=== PATIENT | female | born 1945 | race Caucasian/White ===

== ENCOUNTER 2016-07-23 01:55 | Emergency (ER) | payer MEDICARE ==
[2016-07-23 02:43] LABS: BASO % 0.3 % (0.1-1.2); EOS # 0.5 10_X3_uL (0.0-0.4); GRAN # 3.5 10_X3_uL (1.6-6.1); GRAN % 39.1 % (34.0-71.1); HEMATOCRIT 33.2 % (34-45); HEMOGLOBIN 11.2 g/dL (11.2-15.7); LYMPH % 44.9 % (19.3-51.7); MEAN CORPUSCULAR HEMOGLOBIN 32.8 pg (27.0-33.0); MEAN CORPUSCULAR HGB CONC 33.7 g/dL (32.0-36.0); MEAN CORPUSCULAR VOLUME 97.4 fL (79-95); MEAN PLATELET VOLUME 9.7 fl (7.5-11.5); MONO # 0.9 10_X3_uL (0.2-0.9); MONO % 9.7 % (4.7-12.5); PLATELET COUNT 240 x10_3/uL (182-369); RED BLOOD COUNT 3.41 x10_6/uL (3.9-5.2); RED CELL DISTRIBUTION WIDTH 11.9 % (11.7-14.4)
[2016-07-23 02:57] LABS: BLOOD UREA NITROGEN 6 mg/dL (7-18); CALCIUM 8.8 mg/dL (8.7-10.7); CARBON DIOXIDE 26 mmol/L (21-32); CREATININE 0.8 mg/dL (0.6-1.3); GLUCOSE,RANDOM 88 mg/dL (70-99); POTASSIUM 3.6 mmol/L (3.5-5.1); SODIUM 137 mmol/L (136-145)
== END 2016-07-23 03:55 | disposition home or self-care (01) ==
LOC: ER 01:55
PROVIDERS: Emergency Medicine
DX: I95.9 Hypotension, unspecified (principal); E78.5 Hyperlipidemia, unspecified; I10 Essential (primary) hypertension; K21.9 Gastro-esophageal reflux disease without esophagitis; F41.9 Anxiety disorder, unspecified; G89.29 Other chronic pain; E03.9 Hypothyroidism, unspecified; Z90.710 Acquired absence of both cervix and uterus; Z79.82 Long term (current) use of aspirin; Z79.899 Other long term (current) drug therapy; Z79.891 Long term (current) use of opiate analgesic
CPT/HCPCS: 36415; 80048; 85025; 99283

== ENCOUNTER 2016-10-11 10:11 | Emergency (ER) | payer MEDICARE | END 2016-10-11 14:26 | disposition home or self-care (01) | LOC: ER 10:11 | PROC: 3E0234Z Introduction of Serum, Toxoid and Vaccine into Muscle, Percutaneous Approach (ICD-10-PCS; principal; 2016-10-11) | DX: S01.81XA Laceration without foreign body of other part of head, initial encounter (principal); S50.311A Abrasion of right elbow, initial encounter; S60.221A Contusion of right hand, initial encounter; X50.0XXA Overexertion from strenuous movement or load, initial encounter; W01.0XXA Fall on same level from slipping, tripping and stumbling without subsequent striking against object, initial encounter; Y93.K9 Activity, other involving animal care; Y92.410 Unspecified street and highway as the place of occurrence of the external cause; I10 Essential (primary) hypertension; Z23 Encounter for immunization | CPT/HCPCS: 12002; 70450; 73080; 73130; 90471; 90715; 99070; 99283-25; 99284 ==